=== PATIENT | male | born 1980 | race Hispanic/Latino ===

== ENCOUNTER 2020-04-01 17:08 | Emergency (ER) | payer OTHER ==
[2020-04-02 14:55] LABS: SARS-CoV-2 MS2 Positive; SARS-CoV-2 N Gene Negative; SARS-CoV-2 S Gene Negative; SARS-CoV-2 orf1ab Negative
== END 2020-04-01 18:10 | disposition home or self-care (01) ==
LOC: ERS 17:08
DX: Z20.828 Contact with and (suspected) exposure to other viral communicable diseases (principal)
CPT/HCPCS: 87635; 99283; U0003

== ENCOUNTER 2020-04-21 22:21 | Emergency (ER) | payer SELFPAY ==
--- NOTE | 2020-04-21 23:43 | RAD ---
EXAM: CHEST ONE VIEW HISTORY: Trauma. COMPARISON: None FINDINGS: The cardiac silhouette and pulmonary vasculature is within normal limits. The lungs are clear. No pne umothorax or pleural effusion is seen. No obvious fracture is identified. IMPRESSION: No acute cardiopulmonary process.
== END 2020-04-22 00:08 | disposition home or self-care (01) ==
LOC: ERS 22:21
DX: R07.89 Other chest pain (principal); V49.9XXA Car occupant (driver) (passenger) injured in unspecified traffic accident, initial encounter
CPT/HCPCS: 71045; 93005

== ENCOUNTER 2020-10-23 13:23 | Outpatient (CLI) | payer OTHER ==
--- NOTE | 2020-10-23 14:44 | ULT ---
TESTICULAR ULTRASOUND: 10/23/20 INDICATIONS: Bilateral testicular pain. FINDINGS: Both testicles show a normal sonographic appearance. No evidence of testicular mass. Color Doppler wi th spectral analysis demonstrates normal and equal blood flow to both testicles. Tiny epididymal cyst s on the right measures 3 to 4 mm. Small right hydrocele. No abnormalities seen in the left scrotum. IMPRESSION: 1. Small right hydrocele. 2. Tiny right epididymal head cyst. 3. Testicles otherwise unremarkable. POS: [facility]
== END 2020-10-23 13:24 | disposition home or self-care (01) ==
LOC: BICULT 13:23
PROVIDERS: ATTEND Family Medicine
DX: N50.819 Testicular pain, unspecified (principal); N43.3 Hydrocele, unspecified; N50.3 Cyst of epididymis
CPT/HCPCS: 76870; 93976

== ENCOUNTER 2022-11-26 14:35 | Outpatient (CLI) | payer OTHER | END 2022-11-26 14:36 | disposition home or self-care (01) | LOC: BICULT 14:35 | PROVIDERS: ATTEND Family Medicine | DX: N50.812 Left testicular pain (principal); N50.3 Cyst of epididymis | CPT/HCPCS: 76870; 93976 ==